=== PATIENT | male | born 1955 | race Caucasian/White ===

== ENCOUNTER 2018-11-23 04:13 | Inpatient (IN) | payer OTHER ==
[~2018-11-23] VITALS: Ht 172.7 cm; Wt 68.0 kg
[2018-11-23] MEDS ORDERED: ATORVASTATIN CA10 MG ORAL (04:22)
[2018-11-23] MEDS ORDERED: HYDROmorphone 1mg/ml Carpuject IVP ONE ×2 (04:30→05:00)
--- NOTE | 2018-11-23 04:31 | Emergency Room Report ---
History of Present Illness General Chief Complaint: Abdominal Pain Source: Patient Present Illness HPI Is a 63-year-old male who had a history of Crohn's and been in remission for many years. He presents with chief complaint abdominal pain. Had some mild pain tonight but woke up with severe sharp pain about an hour ago. Pain is 10 out of 10. Diffuse in nature. Has nausea and vomiting for the pain. No diarrhea. No fever chills. Nothing made it better. Nothing made it worse. No radiation. Pain is described as sharp and severe. No hematuria. No urinary complaint. No fever. Allergies: Coded Allergies: PENICILLINS (Verified Allergy, Unknown, 11/23/18) Patient History Past Medical History: see triage record, old chart reviewed Past Surgical History: none, other Pertinent Family History: none Social History: Denies: smoking Immunizations: other Reviewed Nursing Documentation: PMH: Agreed; PSxH: Agreed Nursing Documentation-PMH Hx Gastrointestinal Problems: Yes - CROHNs Review of Systems Eye: Denies: eye pain, blurred vision ENT: Denies: ear pain, nose congestion, throat swelling Respiratory: Denies: cough, shortness of breath Cardiovascular: Denies: chest pain, palpitations Gastrointestinal: Reports: abdominal pain; Denies: diarrhea, nausea, vomiting Musculoskeletal: Denies: back pain, joint pain Skin: Denies: rash Neurological: Denies: headache, numbness Endocrine: Denies: increased thirst, increased urine Hematologic/Lymphatic: Denies: easy bruising All Other Systems: negative except mentioned in HPI Physical Exam Vital Signs Date Time Temp Pulse Resp B/P (MAP) Pulse Ox O2 Delivery O2 Flow Rate FiO2 11/23/18 04:16 98.1 69 16 131/74 99 Room Air vitals normal Sp02 EP Interpretation: reviewed, normal General Appearance: well appearing, no apparent distress, alert Head: normocephalic, atraumatic Eyes: bilateral eye PERRL, bilateral eye EOMI ENT: hearing grossly normal, normal pharynx Neck: full range of motion, supple, no meningismus Respiratory: chest non-tender, lungs clear, normal breath sounds Cardiovascular #1: regular rate, rhythm, no murmur Gastrointestinal: no mass, no organomegaly, no bruit, non-distended, guarding, tenderness - Diffuse abdominal pain, decreased bowel sounds Musculoskeletal: back normal, gait/station normal, normal range of motion Psychiatric: mood/affect normal Skin: warm/dry Medical Decision Making Diagnostic Impression: Primary Impression: Diverticulitis large intestine Qualified Codes: K57.32 - Diverticulitis of large intestine without perforation or abscess without bleeding Additional Impression: Abdominal pain Qualified Codes: R10.84 - Generalized abdominal pain ER Course Patient presents with abdominal pain. CT scan showed no perforation. He does have sigmoid diverticulitis. No abscess or free air. His pain is out of proportion to the finding on the CT scan. He does have an elevated WBC. Antibiotics given here. Because of his pain, will admit for IV antibiotics and pain control. He will be admit versus transfer based on his insurance. Antibiotics given here. Admission versus transfer pending. Laboratory Tests Test 11/23/18 04:30 White Blood Count 15.0 K/UL (4.8-10.8) H Red Blood Count 4.87 M/UL (4.70-6.10) Hemoglobin 15.5 G/DL (14.2-18.0) Hematocrit 46.0 % (42.0-52.0) Mean Corpuscular Volume 94 FL (80-99) Mean Corpuscular Hemoglobin 31.9 PG (27.0-31.0) H Mean Corpuscular Hemoglobin Concent 33.8 G/DL (32.0-36.0) Red Cell Distribution Width 12.2 % (11.6-14.8) Platelet Count 281 K/UL (150-450) Mean Platelet Volume 5.2 FL (6.5-10.1) L Neutrophils (%) (Auto) 70.9 % (45.0-75.0) Lymphocytes (%) (Auto) 18.7 % (20.0-45.0) L Monocytes (%) (Auto) 9.0 % (1.0-10.0) Eosinophils (%) (Auto) 0.8 % (0.0-3.0) Basophils (%) (Auto) 0.6 % (0.0-2.0) Prothrombin Time 10.4 SEC (9.30-11.50) Prothromb Time International Ratio 1.0 (0.9-1.1) Activated Partial Thromboplast Time 28 SEC (23-33) Sodium Level 138 MMOL/L (136-145) Potassium Level 3.2 MMOL/L (3.5-5.1) L Chloride Level 100 MMOL/L (98-107) Carbon Dioxide Level 23 MMOL/L (21-32) Anion Gap 15 mmol/L (5-15) Blood Urea Nitrogen 16 mg/dL (7-18) Creatinine 1.6 MG/DL (0.55-1.30) H Estimat Glomerular Filtration Rate 43.6 mL/min (>60) Glucose Level 182 MG/DL (74-106) H Calcium Level 10.2 MG/DL (8.5-10.1) H Total Bilirubin 0.4 MG/DL (0.2-1.0) Aspartate Amino Transf (AST/SGOT) 20 U/L (15-37) Alanine Aminotransferase (ALT/SGPT) 33 U/L (12-78) Alkaline Phosphatase 107 U/L (46-116) Total Protein 8.7 G/DL (6.4-8.2) H Albumin 4.0 G/DL (3.4-5.0) Globulin 4.7 g/dL Albumin/Globulin Ratio 0.9 (1.0-2.7) L Lipase 264 U/L (73-393) Serum Alcohol < 3 mg/dL Lab Results Impression vitals with elevated WBC Rhythm Strip Diag. Results Rhythm Strip Time: 06:03 EP Interpretation: yes Rate: 88 Rhythm: NSR, no PVC's, no ectopy CT/MRI/US Diagnostic Results CT/MRI/US Diagnostic Results : Imaging Test Ordered: CT abdomen and pelvis Impression Read by radiologist. Sigmoid diverticulitis. No perforation or free air. No abscess. Last Vital Signs Date Time Temp Pulse Resp B/P (MAP) Pulse Ox O2 Delivery O2 Flow Rate FiO2 11/23/18 04:16 98.1 69 16 131/74 99 Room Air Status: improved Disposition: ADMITTED INPATIENT Condition: Serious Josh Ramirez MD Nov 23, 2018 04:31
[2018-11-23 04:32] VITALS: BP 131/74
[2018-11-23 04:42] LABS: BASOPHILS % (AUTO) 0.6 % (0.0-2.0); EOSINOPHILS % (AUTO) 0.8 % (0.0-3.0); HEMOGLOBIN 15.5 G/DL (14.2-18.0); LYMPHOCYTES % (AUTO) 18.7 % (20.0-45.0); MEAN CORPUSCULAR VOLUME 94 FL (80-99); NEUTROPHILS % (AUTO) 70.9 % (45.0-75.0); PLATELET COUNT 281 K/UL (150-450); RED BLOOD COUNT 4.87 M/UL (4.70-6.10); RED CELL DISTRIBUTION WIDTH 12.2 % (11.6-14.8)
[2018-11-23 04:53] LABS: ANION GAP 15 mmol/L (5-15); BLOOD UREA NITROGEN 16 mg/dL (7-18); CALCIUM 10.2 MG/DL (8.5-10.1); CARBON DIOXIDE 23 MMOL/L (21-32); CHLORIDE 100 MMOL/L (98-107); CREATININE 1.6 MG/DL (0.55-1.30); POTASSIUM 3.2 MMOL/L (3.5-5.1); SODIUM 138 MMOL/L (136-145)
[2018-11-23] MEDS ORDERED: HYDROmorphone 1mg/ml Carpuject ONE (04:56)
[2018-11-23 04:57] LABS: ALANINE AMINOTRANSFERASE 33 U/L (12-78); ALBUMIN/GLOBULIN RATIO 0.9 (1.0-2.7); ALKALINE PHOSPHATASE 107 U/L (46-116); ASPARTATE AMINO TRANSFERASE 20 U/L (15-37); BILIRUBIN,TOTAL 0.4 MG/DL (0.2-1.0)
[2018-11-23] MEDS ORDERED: Ciprofloxacin 500mg tab ORAL ONE (06:00)
[2018-11-23] MEDS ORDERED: HYDROmorphone 1 MG in NS 55 ML IV ONE ×2 (06:45→08:45)
[2018-11-23 07:54] VITALS: BP 173/92
[2018-11-23 08:26] LABS: APPEARANCE,URINE CLEAR; BILIRUBIN, URINE NEGATIVE (NEGATIVE); COLOR,URINE PALE YELLOW; GLUCOSE, URINE (UA) 1+ (NEGATIVE); KETONES,URINE 2+ (NEGATIVE); LEUKOCYTE ESTERASE ,URINE NEGATIVE (NEGATIVE); NITRITE,URINE NEGATIVE (NEGATIVE); PH,URINE 5 (4.5-8.0); PROTEIN,URINE 2+ (NEGATIVE); UROBILINOGEN,URINE NORMAL MG/DL (0.0-1.0)
[2018-11-23 10:20] VITALS: BP 162/81
[2018-11-23] MEDS ORDERED: D5NS 1,000 ML IV SCH (10:32)
[2018-11-23] MEDS ORDERED: Enoxaparin 40mg Inj SUBQ SCH (10:45)
--- NOTE | 2018-11-23 10:47 | Diagnostic Imaging Report ---
Indication: Abdominal pain, history of Crohn's disease Technique: Spiral acquisitions obtained through the abdomen and pelvis. No oral contrast utilized, per emergency room physician request No IV contrast utilized, per referring physician request.. Multiplanar reconstructions were generated. Total dose length product 565.66 mGycm. CTDIvol(s) 10.58 mGy. Dose reduction achieved using automated exposure control Comparison: None Findings: There is colonic diverticulosis. There is some inflammation of the pericolonic fat adjacent to the proximal sigmoid. No extraluminal gas or fluid demonstrated. The appendix is not definitely demonstrated, but no findings to suggest acute appendicitis are evident. No small bowel distention. There is a distal small bowel feces, which could indicate stasis of contents. No free or loculated intraperitoneal gas or fluid is evident. There is a small sliding-type hiatal hernia. The distal esophagus and stomach are otherwise unremarkable. The duodenum is unremarkable. There is trace free intraperitoneal fluid seen over the dome of the liver. No free intraperitoneal gas demonstrated. Lack of IV contrast limits assessment of the solid organs. The liver is grossly unremarkable. The gallbladder demonstrates mild edema and pericholecystic fluid. No gallstones. No biliary ductal dilatation. The pancreas, spleen, adrenals are unremarkable. The right kidney is slightly atrophic. Both kidneys demonstrate markedly lobulated contours, particularly that on the right. No focal renal abnormality demonstrated. No pelvic mass or adenopathy. The prostate is enlarged. The included lung bases demonstrate posterior dependent atelectatic changes bilaterally, possibly some scarring on the right. The bones are unremarkable Impression: Positive for uncomplicated acute diverticulitis of the proximal sigmoid Mild gallbladder wall edema and pericholecystic fluid. Significance uncertain as no definite gallstones are evident. Consider ultrasound for better characterization Borderline atrophic kidneys with bilateral scarring Prostatomegaly Dependent pulmonary atelectatic changes, possible scarring on the right Small sliding-type hiatal hernia This agrees with the preliminary interpretation provided overnight by [facility] teleradiology service, with some additional nonsignificant findings. The CT scanner at [facility] is accredited by the [employer] and the scans are performed using protocols designed to limit radiation exposure to as low as reasonably achievable to attain images of sufficient resolution adequate for diagnostic evaluation.
[2018-11-23] MEDS: Morphine Sulfate 4mg/ml Inj (IV/IM USE ONLY) IVP PRN ×2 (11:14→15:28)
[2018-11-23 12:00] VITALS: BP 143/76
--- NOTE | 2018-11-23 13:57 | GI Initial Consult Note ---
History of Present Illness General Date patient seen: Nov 23, 2018 Time patient seen: 13:36 Reason for Hospitalization: Abdominal Pain Referring physician: AILEEN Reason for Consultation: DIVERTICULITIS Present Illness HPI Is a 63-year-old male who had a history of Crohn's and been in remission for many years. He presents with chief complaint abdominal pain. Had some mild pain tonight but woke up with severe sharp pain about an hour ago. Pain is 10 out of 10. Diffuse in nature. Has nausea and vomiting for the pain. No diarrhea. No fever chills. Nothing made it better. Nothing made it worse. No radiation. Pain is described as sharp and severe. No hematuria. No urinary complaint. No fever. GI consulted for sigmoid diverticulitis. Patient was seen, awake alert and oriented x4 no apparent distress, complaint of generalized abdominal pain times 3 days, tender to touch all quadrants. Reports constipation with no bowel movement over the past 3 days. Patient stated he had a history of Crohn's disease, noted that it was diagnosed over 20 years ago. He reports he was on medication for his Crohn's however cannot recall any at this time. Patient is currently taking no medications for his Crohn's now. A recent abdominal pelvic CT shows a positive for uncomplicated acute diverticulitis of the proximal sigmoid. His last colonoscopy was over 5 years ago, he is unsure of the results. Patient presents today with leukocytosis. Home Meds Reported Medications Atorvastatin Calcium* (LIPITOR*) 10 Mg Tablet, 0 ORAL BEDTIME, TAB 11/23/18 Med list reviewed/reconciled: Yes Allergies: Coded Allergies: PENICILLINS (Verified Allergy, Unknown, 11/23/18) Patient History History Provided By: Patient, Medical Record PMH Narrative Past Medical History: see triage record, old chart reviewed Past Surgical History: none, other Pertinent Family History: none Social History: Denies: smoking Immunizations: other Reviewed Nursing Documentation: PMH: Agreed; PSxH: Agreed Nursing Documentation-PMH Hx Gastrointestinal Problems: Yes - CROHNs Past Surgical History: none Pertinent Family History: none Social History: Reports: alcohol use Social History Narrative The patient reports to drink multiple cocktails on a daily basis. Review of Systems All Other Systems: negative except mentioned in HPI Physical Exam Vital Signs Date Time Temp Pulse Resp B/P (MAP) Pulse Ox O2 Delivery O2 Flow Rate FiO2 12/28/18 04:16 98.1 69 16 131/74 99 Room Air Sp02 EP Interpretation: reviewed, normal Labs Laboratory Tests Test 11/23/18 04:30 11/23/18 08:10 White Blood Count 15.0 K/UL (4.8-10.8) H Red Blood Count 4.87 M/UL (4.70-6.10) Hemoglobin 15.5 G/DL (14.2-18.0) Hematocrit 46.0 % (42.0-52.0) Mean Corpuscular Volume 94 FL (80-99) Mean Corpuscular Hemoglobin 31.9 PG (27.0-31.0) H Mean Corpuscular Hemoglobin Concent 33.8 G/DL (32.0-36.0) Red Cell Distribution Width 12.2 % (11.6-14.8) Platelet Count 281 K/UL (150-450) Mean Platelet Volume 5.2 FL (6.5-10.1) L Neutrophils (%) (Auto) 70.9 % (45.0-75.0) Lymphocytes (%) (Auto) 18.7 % (20.0-45.0) L Monocytes (%) (Auto) 9.0 % (1.0-10.0) Eosinophils (%) (Auto) 0.8 % (0.0-3.0) Basophils (%) (Auto) 0.6 % (0.0-2.0) Prothrombin Time 10.4 SEC (9.30-11.50) Prothromb Time International Ratio 1.0 (0.9-1.1) Activated Partial Thromboplast Time 28 SEC (23-33) Sodium Level 138 MMOL/L (136-145) Potassium Level 3.2 MMOL/L (3.5-5.1) L Chloride Level 100 MMOL/L (98-107) Carbon Dioxide Level 23 MMOL/L (21-32) Anion Gap 15 mmol/L (5-15) Blood Urea Nitrogen 16 mg/dL (7-18) Creatinine 1.6 MG/DL (0.55-1.30) H Estimat Glomerular Filtration Rate 43.6 mL/min (>60) Glucose Level 182 MG/DL (74-106) H Calcium Level 10.2 MG/DL (8.5-10.1) H Total Bilirubin 0.4 MG/DL (0.2-1.0) Aspartate Amino Transf (AST/SGOT) 20 U/L (15-37) Alanine Aminotransferase (ALT/SGPT) 33 U/L (12-78) Alkaline Phosphatase 107 U/L (46-116) Total Protein 8.7 G/DL (6.4-8.2) H Albumin 4.0 G/DL (3.4-5.0) Globulin 4.7 g/dL Albumin/Globulin Ratio 0.9 (1.0-2.7) L Lipase 264 U/L (73-393) Serum Alcohol < 3 mg/dL Urine Color Pale yellow Urine Appearance Clear Urine pH 5 (4.5-8.0) Urine Specific [place] 1.015 (1.005-1.035) Urine Protein 2+ (NEGATIVE) H Urine Glucose (UA) 1+ (NEGATIVE) H Urine Ketones 2+ (NEGATIVE) H Urine Blood 4+ (NEGATIVE) H Urine Nitrite Negative (NEGATIVE) Urine Bilirubin Negative (NEGATIVE) Urine Urobilinogen Normal MG/DL (0.0-1.0) Urine Leukocyte Esterase Negative (NEGATIVE) Urine RBC 5-10 /HPF (0 - 0) H Urine WBC 0 /HPF (0 - 0) Urine Squamous Epithelial Cells None /LPF (NONE/OCC) Urine Bacteria None /HPF (NONE) Urine Mucus Occasional /LPF Urine Opiates Screen Negative (NEGATIVE) Urine Barbiturates Screen Negative (NEGATIVE) Phencyclidine (PCP) Screen Negative (NEGATIVE) Urine Amphetamines Screen Negative (NEGATIVE) Urine Benzodiazepines Screen Negative (NEGATIVE) Urine Cocaine Screen Negative (NEGATIVE) Urine Marijuana (THC) Screen Negative (NEGATIVE) General Appearance: well appearing, no apparent distress, alert Head: normocephalic EENT: PERRL/EOMI, normal ENT inspection Neck: supple Respiratory: normal breath sounds, no respiratory distress Cardiovascular: normal rate Gastrointestinal: normal inspection, non tender, soft, normal bowel sounds, non -distended Rectal: deferred Genitourinary: deferred Musculoskeletal: normal inspection, back normal Neurologic: normal inspection, alert, oriented x3, responsive Psychiatric: normal inspection, judgement/insight normal, memory normal Skin: normal inspection, normal color, no rash, warm/dry, palpation normal, well hydrated Lymphatic: normal inspection, no adenopathy Current Medications Current Medications Medications (Trade) Dose Ordered Sig/Randi Route PRN Reason Start Time Stop Time Status Last Admin Dose Admin Acetaminophen (Tylenol) 650 mg Q4H PRN ORAL Mild Pain (Pain Scale 1-3) 11/23/18 09:45 12/23/18 09:44 Atorvastatin Calcium (Lipitor) 10 mg QHS ORAL 11/23/18 21:00 12/23/18 20:59 Dextrose (Dextrose 50%) 25 ml Q30M PRN IV Hypoglycemia 11/23/18 09:45 12/23/18 09:44 Dextrose (Dextrose 50%) 50 ml Q30M PRN IV Hypoglycemia 11/23/18 09:45 12/23/18 09:44 Dextrose/Sodium Chloride 1,000 ml @ 75 mls/hr [id number] IV 11/23/18 10:32 12/23/18 10:31 11/23/18 10:33 Enoxaparin Sodium (Lovenox) 40 mg DAILY SUBQ 11/23/18 10:45 12/23/18 10:44 11/23/18 11:18 Famotidine (Pepcid) 40 mg DAILY ORAL 11/24/18 09:00 12/24/18 08:59 Morphine Sulfate (Morphine Sulfate) 1 mg Q4HR PRN IVP PAIN 4-10 11/23/18 09:45 11/30/18 09:44 11/23/18 11:14 Ondansetron HCl (Zofran) 4 mg Q6H PRN IVP Nausea & Vomiting 11/23/18 09:45 12/23/18 09:44 Piperacillin Sod/ Tazobactam Sod 3.375 gm/Sodium Chloride 110 ml @ 27.5 mls/hr EVERY 8 HOURS IVPB 11/23/18 14:00 11/28/18 13:59 UNV GI: Plan Problems: (1) Leukocytosis (2) Abdominal pain (3) Diverticulitis large intestine Plan Medical management for acute diverticulitis Bowel rest, maintain n.p.o. with IV fluids Clear liquid diet trial tomorrow, advance as tolerated Defer Zosyn given allergy to penicillin, start Cipro plus Flagyl >> follow-up with ID -Patient will require transition to p.o. Cipro plus Flagyl for 10 days after discharge. Pain management Follow-up labs, add CRP and ESR to rule out Crohn's flare Patient required colonoscopy times 2 months after discharge date We will follow with additional recommendations Discussed with Dr. Juan. Thank you for this patient referral, we will follow. The patient was seen and examined at bedside and all new and available data was reviewed in the patients chart. I agree with the above findings, impression and plan. (Patient seen earlier today. Signature stamp does not reflect patient encounter time.). - MD Ashley Whitehead Anh-Felix STEREOPTICIAN Nov 23, 2018 13:57
[2018-11-23] MEDS ORDERED: Piperacillin/Tazobactam 3.375 GM in NS 110 ML IVPB SCH (14:00)
--- NOTE | 2018-11-23 14:30 | History and Physical Report ---
DATE OF ADMISSION: 11/23/2018 REASON FOR ADMISSION: Abdominal pain. HISTORY OF PRESENT ILLNESS: The patient is a 63-year-old gentleman with known Crohn disease with remission for many years, not on any chronic suppressive immunotherapy. He has been feeling otherwise well except for approximately three days ago started having sharp abdominal pain, which worsened over the last 72 hours. Pain is 10/10, worse in the evening. No nausea, vomiting, or diarrhea. It was stated that this morning, he felt like his abdomen was going to explode. ALLERGIES: Penicillin. PAST MEDICAL HISTORY: 1. Hyperlipidemia. 2. Crohn disease. PAST SURGICAL HISTORY: None. FAMILY HISTORY: Noncontributory. SOCIAL HISTORY: No tobacco, alcohol, or illicit drug use. LABORATORY DATA: Laboratories dated November 23, 2018, white cell count 15, hemoglobin 15.5, and platelet count 281. Potassium 3.2, sodium 138, BUN 16, and creatinine 1.6. AST and ALT within normal limits. PHYSICAL EXAMINATION: VITAL SIGNS: Blood pressure 173/92, respiratory rate 25, pulse 88, and temperature 98.1. GENERAL: The patient is awake and alert, in mild distress. HEENT: Extraocular muscles intact. No lymphadenopathy. Oropharyngeal mucosa is clear and dry. CARDIOVASCULAR: S1 and S2. No rubs or gallops. PULMONARY: Clear to auscultation bilaterally. No rales, rhonchi or wheezes. ABDOMEN: Nondistended with mild tenderness. Good bowel sounds. EXTREMITIES: No edema. ASSESSMENT AND PLAN: 1. Abdominal pain secondary to sigmoid diverticulitis. Gastroenterology has been consulted. We will defer antibiotic management to the therapy with Flagyl and Cipro. 2. Hyperlipidemia. We will continue Lipitor. 3. Acute kidney injury. Creatinine 1.6, likely secondary from volume depletion. IV fluids have been initiated. If renal function does not improve, we will initiate renal investigations. 4. Hypokalemia. We will replace with IV potassium. 5. DVT prophylaxis with Lovenox. Eder Medrano MD DR: DAO/TOMASZ JOB#: [id number] CC:
[2018-11-23 16:00] VITALS: BP 136/80
--- NOTE | 2018-11-23 16:11 | Consultation ---
History of Present Illness General Date patient seen: Nov 23, 2018 Chief Complaint: Abdominal Pain Referring physician: AILEEN Reason for Consultation: DIVERTICULITIS Present Illness HPI 63-year-old male with history of Crohn's disease presented with three days of sharp abdominal pain which has been worsening. Pain is 10/10 generalized abd pain worse in LLQ. No radiation. No nausea, vomiting, or diarrhea. As pain did not improve he came to ED for evaluation. noted to have leukocytosis, tachycardia, low grade fevers, and CT with acute diverticulitis. surgery called to evaluate. patient seen, chart reviewed, patient examined. Allergies: Coded Allergies: ERYTHROMYCIN BASE (Verified Allergy, Mild, Hives, 11/23/18) PENICILLINS (Verified Allergy, Unknown, 11/23/18) Medication History Scheduled Atorvastatin Calcium* (Lipitor*), 0 ORAL BEDTIME, (Reported) Patient History History Provided By: Patient, Medical Record, PMD Healthcare decision maker Iris Palma Resuscitation status Full Code Advanced Directive on File Past Medical/Surgical History Past Medical/Surgical History: (1) Leukocytosis (2) Abdominal pain (3) Diverticulitis large intestine Review of Systems All Other Systems: negative except mentioned in HPI Physical Exam General Appearance: no apparent distress, alert Lines, tubes and drains: peripheral HEENT: mucous membranes moist Neck: normal inspection Respiratory/Chest: normal breath sounds, no accessory muscle use Cardiovascular/Chest: tachycardia Abdomen: soft, guarding, rebound, tender Extremities: normal inspection Skin Exam: warm/dry Neurologic: alert, oriented x 3 Last 24 Hour Vital Signs Date Time Temp Pulse Resp B/P (MAP) Pulse Ox O2 Delivery O2 Flow Rate FiO2 11/23/18 12:00 99.7 101 24 143/76 (98) 90 11/23/18 10:53 Room Air 11/23/18 10:28 Room Air 11/23/18 10:24 98.1 91 20 162/81 95 Room Air 11/23/18 10:20 98.1 91 20 162/81 95 Room Air 11/23/18 09:53 175/82 11/23/18 09:19 98.1 11/23/18 07:54 98.1 88 25 173/92 96 Room Air 11/23/18 07:24 98.1 11/23/18 05:04 98.1 12/28/18 05:04 98.1 11/23/18 04:34 60 16 Room Air 11/23/18 04:32 98.1 60 16 131/74 99 Room Air 11/23/18 04:16 98.1 69 16 131/74 99 Room Air Intake and Output 11/22/18 11/23/18 19:00 07:00 Intake Total 0 ml Balance 0 ml Intake Oral 0 ml Laboratory Tests Test 11/23/18 04:30 11/23/18 08:10 White Blood Count 15.0 K/UL (4.8-10.8) H Red Blood Count 4.87 M/UL (4.70-6.10) Hemoglobin 15.5 G/DL (14.2-18.0) Hematocrit 46.0 % (42.0-52.0) Mean Corpuscular Volume 94 FL (80-99) Mean Corpuscular Hemoglobin 31.9 PG (27.0-31.0) H Mean Corpuscular Hemoglobin Concent 33.8 G/DL (32.0-36.0) Red Cell Distribution Width 12.2 % (11.6-14.8) Platelet Count 281 K/UL (150-450) Mean Platelet Volume 5.2 FL (6.5-10.1) L Neutrophils (%) (Auto) 70.9 % (45.0-75.0) Lymphocytes (%) (Auto) 18.7 % (20.0-45.0) L Monocytes (%) (Auto) 9.0 % (1.0-10.0) Eosinophils (%) (Auto) 0.8 % (0.0-3.0) Basophils (%) (Auto) 0.6 % (0.0-2.0) Prothrombin Time 10.4 SEC (9.30-11.50) Prothromb Time International Ratio 1.0 (0.9-1.1) Activated Partial Thromboplast Time 28 SEC (23-33) Sodium Level 138 MMOL/L (136-145) Potassium Level 3.2 MMOL/L (3.5-5.1) L Chloride Level 100 MMOL/L (98-107) Carbon Dioxide Level 23 MMOL/L (21-32) Anion Gap 15 mmol/L (5-15) Blood Urea Nitrogen 16 mg/dL (7-18) Creatinine 1.6 MG/DL (0.55-1.30) H Estimat Glomerular Filtration Rate 43.6 mL/min (>60) Glucose Level 182 MG/DL (74-106) H Calcium Level 10.2 MG/DL (8.5-10.1) H Total Bilirubin 0.4 MG/DL (0.2-1.0) Aspartate Amino Transf (AST/SGOT) 20 U/L (15-37) Alanine Aminotransferase (ALT/SGPT) 33 U/L (12-78) Alkaline Phosphatase 107 U/L (46-116) Total Protein 8.7 G/DL (6.4-8.2) H Albumin 4.0 G/DL (3.4-5.0) Globulin 4.7 g/dL Albumin/Globulin Ratio 0.9 (1.0-2.7) L Lipase 264 U/L (73-393) Serum Alcohol < 3 mg/dL Urine Color Pale yellow Urine Appearance Clear Urine pH 5 (4.5-8.0) Urine Specific [place] 1.015 (1.005-1.035) Urine Protein 2+ (NEGATIVE) H Urine Glucose (UA) 1+ (NEGATIVE) H Urine Ketones 2+ (NEGATIVE) H Urine Blood 4+ (NEGATIVE) H Urine Nitrite Negative (NEGATIVE) Urine Bilirubin Negative (NEGATIVE) Urine Urobilinogen Normal MG/DL (0.0-1.0) Urine Leukocyte Esterase Negative (NEGATIVE) Urine RBC 5-10 /HPF (0 - 0) H Urine WBC 0 /HPF (0 - 0) Urine Squamous Epithelial Cells None /LPF (NONE/OCC) Urine Bacteria None /HPF (NONE) Urine Mucus Occasional /LPF Urine Opiates Screen Negative (NEGATIVE) Urine Barbiturates Screen Negative (NEGATIVE) Phencyclidine (PCP) Screen Negative (NEGATIVE) Urine Amphetamines Screen Negative (NEGATIVE) Urine Benzodiazepines Screen Negative (NEGATIVE) Urine Cocaine Screen Negative (NEGATIVE) Urine Marijuana (THC) Screen Negative (NEGATIVE) Height (Feet): 5 Height (Inches): 8.00 Weight (Pounds): 150 Medications Current Medications Medications (Trade) Dose Ordered Sig/Randi Route PRN Reason Start Time Stop Time Status Last Admin Dose Admin Acetaminophen (Tylenol) 650 mg Q4H PRN ORAL Mild Pain (Pain Scale 1-3) 11/23/18 09:45 12/23/18 09:44 Atorvastatin Calcium (Lipitor) 10 mg QHS ORAL 11/23/18 21:00 12/23/18 20:59 Ciprofloxacin 100 ml @ 100 mls/hr Q24HRS IV 11/23/18 16:00 11/30/18 15:59 Dextrose (Dextrose 50%) 25 ml Q30M PRN IV Hypoglycemia 11/23/18 09:45 12/23/18 09:44 Dextrose (Dextrose 50%) 50 ml Q30M PRN IV Hypoglycemia 11/23/18 09:45 12/23/18 09:44 Dextrose/Sodium Chloride 1,000 ml @ 75 mls/hr [id number] IV 11/23/18 10:32 12/23/18 10:31 11/23/18 10:33 Enoxaparin Sodium (Lovenox) 40 mg DAILY SUBQ 11/23/18 10:45 12/23/18 10:44 11/23/18 11:18 Metronidazole 100 ml @ 100 mls/hr Q8HR IVPB 11/23/18 22:00 11/30/18 21:59 Morphine Sulfate (Morphine Sulfate) 1 mg Q4HR PRN IVP PAIN 4-10 11/23/18 09:45 11/30/18 09:44 11/23/18 15:28 Ondansetron HCl (Zofran) 4 mg Q6H PRN IVP Nausea & Vomiting 11/23/18 09:45 12/23/18 09:44 Pantoprazole (Protonix) 40 mg DAILY IVP 11/24/18 09:00 12/24/18 08:59 Potassium Chloride 100 ml @ 100 mls/hr NOW ONCE IVPB 11/23/18 15:30 11/23/18 16:29 11/23/18 15:29 Assessment/Plan Problem List: (1) Diverticulitis large intestine Assessment & Plan: acute uncomplicated diverticulitis leukocytosis fevers tachycardia abd tenderness with rebound and guarding. no peritonitis -npo -iv fluids -IV abx -trend labs -serial exams once pain resolved, exam improved, and labs improving can trial liquid diet no acute surgical intervention planned thank you will follow with recs ICD Codes: K57.32 - Diverticulitis of large intestine without perforation or abscess without bleeding SNOMED: [id number] Qualifiers: Qualified Codes: K57.32 - Diverticulitis of large intestine without perforation or abscess without bleeding Alberto Campbell Nov 23, 2018 16:11
[2018-11-24] MEDS ORDERED: Pantoprazole Inj IVP SCH (09:00)
--- NOTE | 2018-11-24 14:11 | Discharge Summary ---
Discharge Summary Discharge Summary _ DATE OF ADMISSION: 11/23/2018 DATE OF DISCHARGE: 11/23/2018 DISCHARGED BY: Dr. Medrano REASON FOR ADMISSION: 63 years old male with past medical history of hyperlipidemia, Crohn disease ( with remission for many years, not on any chronic suppressive immunotherapy), presented to emergency room for evaluation. Patient started to have sharp abdominal pain , which worsened over the last 72 hours. Pain described as 10 out of 10 ,worse in the evening. No nausea, no vomiting , no diarrhea. Vital signs were stable. Laboratory workup revealed leukocytosis WBC 15. Hemoglobin and hematocrit stable. Chemistry revealed potassium 3.2. BUN 15 creatinine 1.6. Glucose 182. Stable LFT and lipase. Urinalysis revealed +2 protein ,+1 glucose , but no evidence of UTI. Urine toxicology screen was negative. Serum alcohol level was negative. CT scan of the abdomen and pelvis revealed uncomplicated acute diverticulitis of the proximal sigmoid. Mild gallbladder wall edema and pericholecystic fluid. Borderline atrophic kidneys with bilateral scaring. Hepatomegaly. Patient admitted with diagnoses of acute sigmoid diverticulitis, abdominal pain secondary to sigmoid diverticulitis; hyperlipidemia, acute kidney injury, hypokalemia. CONSULTANTS: GI specialist Dr. Juan surgery [facility] COURSE: Patient admitted to medical surgical floor. Patient was kept n.p.o. and started on the IV hydration with close monitoring of renal parameters. Potassium was replaced. Nephrotoxins were avoided. Patient started on broad-spectrum antibiotic with Flagyl and Cipro. GI and surgery consults wee requested. DVT prophylaxis provided. Surgeon seen and evaluated patient. Patient had low-grade fever and mild tachycardia. Bedside abdominal exam revealed abdominal tenderness with some rebound and guarding , but no signs of peritonitis. According to surgeon, no acute surgical intervention was necessary at this time. He recommended to continue IV fluids ,antibiotic, NPO status and follow-up with GI specialist recommendations. GI specialist seen and evaluated patient and recommended medical management for acute diverticulitis with bowel rest , IV fluids , antibitoics. Clear liquid diet trial was planned to start the next morning, with advancement as tolerated. Patient was on Cipro and Flagyl. Patient will require oral antibiotic upon discharge. Pain management was addressed , and pain was controlled. Patient will require colonoscopy 2 months after discharge date. Per insurance purposes, transfer was arranged to [facility]. Patient was stable for transfer . FINAL DIAGNOSES: Acute diverticulitis , large intestine Leukocytosis Hypokalemia Acute kidney injury Hyperlipidemia Abdominal pain (due to diverticulitis) History of Crohn's disease DISCHARGE MEDICATIONS: List of medication was sent with patient DISCHARGE INSTRUCTIONS: Patient was transferred to [facility] for further management I have been assigned to dictate discharge summary for this account. I was not involved in the patient's management. Aranza Mckenzie NP Nov 24, 2018 14:11
== END 2018-11-23 17:30 | disposition other institution (70) | DRG 392 ==
LOC: EMR 04:24 → 4E 09:02 → EDBEDREQ 09:09
DX: K57.32 Diverticulitis of large intestine without perforation or abscess without bleeding (principal); N17.9 Acute kidney failure, unspecified; E78.5 Hyperlipidemia, unspecified; E87.6 Hypokalemia; I10 Essential (primary) hypertension; Z88.0 Allergy status to penicillin
CPT/HCPCS: 36415; 74176; 80053; 80307; 80329; 81003; 83690; 85025; 85610; 85730; 96361; 96365; 96367; 96375; 96376; 99285; J2405